=== PATIENT | female | born 1965 | race Caucasian/White ===

== ENCOUNTER → 2016-08-08 | Outpatient (CLI) | payer OTHER ==
--- NOTE | 2016-08-09 12:32 | MM ---
Reason for exam: follow-up at short interval from prior study. Last mammogram was performed 7 months ago. History: Patient is postmenopausal, has history of other cancer at age 39, and is nulliparous. Family history of breast cancer in aunt. Physical Findings: Nurse did not find any significant physical abnormalities on exam. MG 3D Diag Mammo W/Cad SAROJ Bilateral CC and MLO view(s) were taken. Prior study comparison: June 16, 2015, bilateral MG 3d screening mammo w/cad. There are scattered fibroglandular densities. No significant new findings when compared with previous films. These results were verbally communicated with the patient and result sheet given to the patient on 08/08/16. ASSESSMENT: Negative, BI-RAD 1 RECOMMENDATION: Routine screening mammogram of both breasts in 1 year. Manage patient on a clinical basis.
== END | disposition home or self-care (01) ==
LOC: RADMAMWWP 09:30
PROVIDERS: ATTEND Family Medicine
DX: R92.2 Inconclusive mammogram (principal)
CPT/HCPCS: G0204; G0279; 88108

== ENCOUNTER → 2023-11-06 | Outpatient (CLI) | payer BC ==
--- NOTE | 2023-12-15 11:43 | CONS ---
CONSULTATION REASON FOR CONSULTATION: A 25-year-old lady had been evaluated in [facility] for possible obstructive sleep apnea-hypopnea syndrome. HISTORY OF PRESENT ILLNESS: Sleep-wake evaluation. Home sleep apnea test 15 years ago was negative. Presently, his sleep schedule from 10 or 11 p.m. to 4-5 a.m. Sometimes, the patient has difficulties to fall asleep. Positive history of restless legs. The patient has snoring, wakes up from sleep 2 times with nocturia and has difficulties to initiate sleep. In the morning, the patient feels excessive daytime sleepiness. Negley Sleepiness Scale is extremely high in the range of 20. The patient takes up to 3 naps during the day. No history of hypnagogic hallucinations or sleep paralysis. PAST MEDICAL HISTORY: Hemolytic anemia, SLE, fibromyalgia, hypertension, migraine, asthma. PAST SURGICAL HISTORY: Splenectomy. MEDICATIONS: 1. Metoprolol 25 mg half tablets twice a day. 2. Losartan 50 mg half tablets once a day. 3. Gabapentin 600 mg twice a day. 4. Hydrochloroquine 200 mg twice a day. 5. Duloxetine 60 mg once a day. 6. Montelukast 10 mg once a day. 7. Cyclobenzaprine 10 mg once a day. 8. Ropinirole 2 mg 2 tablets twice a day. 9. Phentermine 37.5 mg once a day. 10.Synthroid 112 mcg once a day. 11.Meloxicam 15 mg once a day. 12. 10 mg as needed for migraine. 13.ProAir. REVIEW OF SYSTEMS: Snoring awakenings from sleep, sleepiness during the day and then follow. No fevers. No double vision. No recent chest pain. No shortness of breath. No abdominal pain. No bleeding episodes. No blood in the urine. No seizure episodes. PHYSICAL EXAMINATION: GENERAL: The patient is in no distress. VITAL SIGNS: BP 120/80, HR 88, RR 16, height 5 feet 3-1/2 inches, weight 260 pounds, body mass index 45.3, temperature 97.5, oxygen saturation at room air 100%. HEENT: PERRLA. EOMI. Short distance between soft palate and pharyngeal wall. NECK: Supple, no JVD, 15 inches in circumference. Nose, restriction of breathing on the right side. LUNGS: Clear. HEART: S1, S2 regular. Systolic murmur on aorta. ABDOMEN: Obese, soft, and nontender. EXTREMITIES: No edema. LDR NURSE: No focal deficit. IMPRESSION: 1. Snoring awakenings from sleep, obstructive sleep apnea-hypopnea syndrome. 2. History of systemic lupus erythematosus. 3. Obesity, BMI 45.3. 4. Systolic murmur and aorta. 5. History of hemolytic anemia. 6. Significant excessive daytime sleepiness with extremely high Negley Sleepiness Scale of 20. 7. Hypothyroidism. 8. History of restless legs syndrome. 9. Migraine. 10.History of thyroid cancer, status post radiation therapy. PLAN: 1. Polysomnography for evaluation of the patient's breathing during the sleep. 2. Following plan after reading the sleep study. 3. Sleep hygiene with regular time in bed for at least 8 hours. 4. Losing weight program. 5. No driving if feeling sleepiness. Thank you very much for referring this patient for consultation. MMODL / IJN: [id number] /
== END ==
LOC: 3 N SLEEP 10-30 14:00
PROVIDERS: ATTEND Internal Medicine
CPT/HCPCS: 99202

== ENCOUNTER 2023-12-29 19:38 | Outpatient (CLI) | payer MEDICARE ==
--- NOTE | 2023-12-31 15:30 | P.PCN ---
Description of Procedure: POLYSOMNOGRAPHY REPORT PROCEDURE(S)/DATE(S): Polysomnography 12/29/2023 CLINICAL: Patient has been seen in the sleep center for evaluation of obstructive sleep apnea-hypopnea syndrome. Please see my consultation. Sleep study has been done for evaluation of patient breathing during the sleep. PROCEDURE: The standard montage for clinical polysomnography included the electroencephalogram, the electrooculogram, the mentalis surface electromyography and Lead II cardiography. The respiratory battery consisted of measurements of nasal/buccal air flow, pressure transducer measurements from nose, thoracic and/or abdominal effort and intercostal surface electromyography. Video monitoring has been done to check for any parasomnia events. Nocturnal oxyhemoglobin saturations were obtained by finger oximetry. Step-harris titration with positive airway pressure was utilized to control the respiratory events, if necessary. RESULTS: During the diagnostic sleep study sleep efficiency was borderline 88.5%. Latency to sleep onset was significantly prolonged to 44.0 min. Sleep architecture showed stage NI was slightly increased to 10.5%, Delta sleep was absent 0%, REM sleep was close to normal 19.2%. Respiratory channel showed 0 obstructive apneas, 0 mixed apneas, 1 central ap neas, 7 hypopneas with lowest oxygen level 90%. Total apnea hypopnea index was 1.2. Heart rate was in the range between 58 and 65, average 62. EMG showed 1.1 periodic limb movements per hour with 0 micro-arousals per hour. IMPRESSIONS: 1. No significant respiratory abnormalities have been documented during the sleep study. 2. No significant periodic limb movements have been documented. 3. Loud snoring have been documented during the sleep test Please see other impressions from consultation PLAN: 1. Patient may consider evaluation by ear nose and throat physician for treatment of snoring. 2. Losing weight program. 3. Sleep hygiene with regular time in bed for at least 7-1/2 hours. 4. No driving if feeling sleepiness. Thank you very much for allowing me to participate in the management of your patient. Sincerely, Tenzin Bean MD, PhD, FAASM. Diplomat of [place] [employer], Sleep Medicine Board by [place] [employer] Supervisor of [facility] [place] cc: Saba Mcmillan MD
== END 2023-12-30 05:30 | disposition home or self-care (01) ==
LOC: 3 N SLEEP 19:38
PROVIDERS: ATTEND Internal Medicine
DX: G47.33 Obstructive sleep apnea (adult) (pediatric)
CPT/HCPCS: 95810